=== PATIENT | female | born 1975 | race African-American/Black ===

== ENCOUNTER 2018-10-22 10:01 | Emergency (ER) | payer OTHER ==
[~2018-10-22] VITALS: Ht 162.6 cm; Wt 113.4 kg
[2018-10-22 10:30] LABS: URINE BILIRUBIN NEGATIVE (Negative); URINE BLOOD TRACE (Negative); URINE CLARITY CLOUDY; URINE COLOR YELLOW; URINE GLUCOSE-RANDOM* NEGATIVE (Negative); URINE KETONES NEGATIVE (Negative); URINE LEUKOCYTES-REFLEX NEGATIVE (Negative); URINE NITRITE-REFLEX NEGATIVE (Negative); URINE PROTEIN (DIPSTICK) NEGATIVE (Negative); URINE UROBILINOGEN 0.2 E.U./dl (0.2-1.0)
[2018-10-22 10:34] LABS: SSA (PROTEIN CONFIRMATORY) NEGATIVE (Negative)
[2018-10-22 11:02] LABS: BASOPHILS 1.5 % (0.0-2.0); HEMATOCRIT 36.4 % (37.0-47.0); HEMOGLOBIN 12.3 gm/dL (12.0-15.0); LYMPHOCYTES 33.7 % (24.0-44.0); MCH 28.9 pg (26.0-34.0); MCHC 33.8 g/dL (28.0-37.0); MCV 85.5 fL (80.0-100.0); MONOCYTES 5.6 % (1.0-8.0); PLATELET COUNT 224 thou/uL (150-400); POLYS 58.2 % (36.0-66.0); RBC 4.26 mil/uL (4.20-5.00); RDW 14.8 % (10.5-14.5); WBC 6.9 thou/uL (4.0-11.0)
[2018-10-22 11:10] LABS: CALCIUM 8.8 mg/dL (8.5-10.1); CREATININE 0.9 mg/dL (0.6-1.0); POTASSIUM 3.8 mmol/L (3.5-5.1)
[2018-10-22 11:15] LABS: ALBUMIN 3.5 g/dL (3.4-5.0); TOTAL BILIRUBIN 0.3 mg/dL (<0.1-1.0); TOTAL PROTEIN 7.1 g/dL (6.4-8.2)
[2018-10-22] MEDS ORDERED: SEROQUEL 25 MG25 M1 PO (11:32)
[2018-10-22] MEDS ORDERED: LAMICTAL 25 MG25 M1 PO (11:32)
[2018-10-22] MEDS ORDERED: NAPROSYN500 MG PO (13:21)
[2018-10-22 13:31] VITALS: BP 129/86
== END 2018-10-22 17:02 | disposition home or self-care (01) ==
LOC: ER 10:01
PROVIDERS: Physician Assistant
DX: N83.201 Unspecified ovarian cyst, right side (principal); Z91.018 Allergy to other foods; Z98.890 Other specified postprocedural states

== ENCOUNTER → 2019-02-06 | Outpatient (CLI) | payer OTHER ==
[~2019-02-06] MED LIST: LAMICTAL 25 MG25 M1 PO; NAPROSYN500 MG PO; SEROQUEL 25 MG25 M1 PO
== END ==
LOC: ULTRA 11:01
DX: R10.11 Right upper quadrant pain (principal)